=== PATIENT | female | born 1985 | race Caucasian/White ===

== ENCOUNTER → 2025-02-02 08:15 | Outpatient (REF) | payer BC, SELFPAY | LOC: WDC 08:15 | PROVIDERS: ATTENDING PHYSICIAN Nurse Practitioner Adult Health | DX: Z12.31 Encounter for screening mammogram for malignant neoplasm of breast (principal) | CPT/HCPCS: 77063; 77067 ==

== ENCOUNTER → 2025-02-14 10:36 | Outpatient (REF) | payer BC, SELFPAY | LOC: WDC 10:36 | PROVIDERS: ATTENDING PHYSICIAN Nurse Practitioner Adult Health | DX: R92.8 Other abnormal and inconclusive findings on diagnostic imaging of breast (principal) | CPT/HCPCS: 76642 ==

== ENCOUNTER → 2025-06-28 17:33 | Outpatient (REF) | payer BC, SELFPAY | LOC: MRI 3T 17:33 | PROVIDERS: ATTENDING PHYSICIAN Psychiatry & Neurology Neurology; FAMILY PHYSICIAN Nurse Practitioner Adult Health | DX: G35 Multiple sclerosis (principal); G95.9 Disease of spinal cord, unspecified | CPT/HCPCS: 70553; 72156; A9575 ==

== ENCOUNTER → 2025-07-04 18:32 | Outpatient (REF) | payer BC, SELFPAY | LOC: MRI 3T 18:32 | PROVIDERS: ATTENDING PHYSICIAN Psychiatry & Neurology Neurology; FAMILY PHYSICIAN Nurse Practitioner Adult Health | DX: G35 Multiple sclerosis (principal); R90.89 Other abnormal findings on diagnostic imaging of central nervous system; R26.89 Other abnormalities of gait and mobility; G95.9 Disease of spinal cord, unspecified; R35.0 Frequency of micturition; R32 Unspecified urinary incontinence | CPT/HCPCS: 72157; 72158; A9575 ==